=== PATIENT | male | born 1975 | race Caucasian/White ===

== ENCOUNTER 2017-03-16 09:13 | Emergency (ER) | payer MEDICAID ==
[2017-03-16] MEDS: ACETAMINOPHEN 500 MG TAB PO (12:11)
== END 2017-03-16 14:31 | disposition home or self-care (01) ==
LOC: FTE 09:13
DX: S01.01XA Laceration without foreign body of scalp, initial encounter (principal); S22.32XA Fracture of one rib, left side, initial encounter for closed fracture; R03.0 Elevated blood-pressure reading, without diagnosis of hypertension; F17.210 Nicotine dependence, cigarettes, uncomplicated; W22.8XXA Striking against or struck by other objects, initial encounter; Y92.9 Unspecified place or not applicable
CPT/HCPCS: 70450; 71045; 71100; 72040; 99284-25

== ENCOUNTER 2017-03-16 17:55 | Emergency (ER) | payer MEDICAID ==
[2017-03-16] MEDS: LIDOCAINE 2%/EPI MPF (SDV) 20 ML VIAL INJ (18:11)
[2017-03-16] MEDS: LIDOCAINE 1%/EPI (1:100,000) (MDV) 20 ML INJ (18:20)
[2017-03-16] MEDS: CEFAZOLIN 1 GM INJ IM (19:31)
[2017-03-16] MEDS: DIPHTH/TET/ACEL PERTUSS (ADULT) 0.5 ML VIAL IM* (19:32)
== END 2017-03-16 20:12 | disposition home or self-care (01) ==
LOC: E/R 17:55
DX: S01.01XA Laceration without foreign body of scalp, initial encounter (principal); W20.8XXA Other cause of strike by thrown, projected or falling object, initial encounter; Y92.9 Unspecified place or not applicable; Z87.891 Personal history of nicotine dependence; Z23 Encounter for immunization
CPT/HCPCS: 12002; 90471; 90715; 96372; 99291-25

== ENCOUNTER 2017-03-18 10:54 | Emergency (ER) | payer MEDICAID | END 2017-03-18 15:32 | disposition home or self-care (01) | LOC: E/R 10:54 | DX: Z48.01 Encounter for change or removal of surgical wound dressing (principal) | CPT/HCPCS: 99281; Z7502 ==